=== PATIENT | male | born 1960 | race African-American/Black ===

== ENCOUNTER 2019-08-31 14:58 | Emergency (ER) | payer OTHER ==
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
[2019-08-31 15:07] VITALS: BP 103/69; PULSE 68; TEMP 98; BMI 22.9
[2019-08-31] MEDS: KETOROLAC TROMETHAMINE 60 MG/2 ML VIAL IM ONE ×2 (15:21→17:13)
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
[2019-08-31] MEDS ORDERED: KETOROLAC TROMETHAMINE 60 MG/2 ML VIAL ONE (17:11)
== END 2019-08-31 17:18 | disposition home or self-care (01) ==
LOC: JERFT 14:58
PROC: 3E0233Z Introduction of Anti-inflammatory into Muscle, Percutaneous Approach (ICD-10-PCS; principal; 2019-08-31)
DX: S39.012A Strain of muscle, fascia and tendon of lower back, initial encounter (principal); S16.1XXA Strain of muscle, fascia and tendon at neck level, initial encounter; S80.02XA Contusion of left knee, initial encounter; V03.10XA Pedestrian on foot injured in collision with car, pick-up truck or van in traffic accident, initial encounter; Y92.414 Local residential or business street as the place of occurrence of the external cause; Y93.89 Activity, other specified; Y99.8 Other external cause status; E78.00 Pure hypercholesterolemia, unspecified; F20.9 Schizophrenia, unspecified
CPT/HCPCS: 72100-TC-FY; 73560-TC-LT-FY; 96372; 99281-25